=== PATIENT | female | born 2000 | race Two or more races ===

== ENCOUNTER 2024-05-19 15:35 | Emergency (ER) | payer MEDICAID, SELFPAY ==
[2024-05-19 15:37] VITALS: BMI 27.7
[2024-05-19 15:51] VITALS: BP 166/114; PULSE 86; RESP 16; TEMP 37.2; O2SAT 98
--- NOTE | 2024-05-19 15:59 | EKG_ITS ---
[facility] Test Date: 2024-05-19 Pat Name: CHELSEA LONDONO Department: Room: - Gender: Female Knockdown Man: : 2000 Requested By: José Miguel Amaya Order Number: [id number] Reading MD: José Miguel Amaya Measurements Intervals [place] Rate: 95 P: 63 RI: 175 QRS: 54 QRSD: 98 T: 11 QT: 356 QTc: 449 Interpretive Statements SINUS RHYTHM WITH SINUS ARRHYTHMIA No previous ECG available for comparison /store/S0/[id number]/[id number].pdf
--- NOTE | 2024-05-19 15:59 | PD.EDRME ---
Rapid Medical Screening Exam E Arrival date/time: 05/19/24 15:35 23-year-old female with no known medical history presents to the emergency room with a chief complaint of palpitations, elevated blood pressure readings, and chest discomfort x 2 days. I have greeted and performed a focused initial assessment of this patient. A comprehensive ED assessment and evaluation of the patient, analysis of all test results, and completion of the medical decision making process will be conducted by additional ED providers. Chief Complaint: General Adult/Misc Complain Vital signs: Vital Signs Temperature 98.9 F 05/19/24 15:51 Pulse Rate 86 05/19/24 15:51 Respiratory Rate 16 05/19/24 15:51 Blood Pressure 166/114 H 05/19/24 15:51 Pulse Oximetry (%) 98 05/19/24 15:51 Oxygen Delivery Method Room Air 05/19/24 15:51 Vital signs reviewed by provider: Yes
[2024-05-19 16:21] LABS: Collection Type, Urine Clean Catch
[2024-05-19 16:27] LABS: HCG Qualitative,Urine Negative
[2024-05-19 16:29] LABS: Bilirubin,Urine Negative (Negative); Blood,Urine Negative (Negative); Clarity,Urine Clear (Clear/Hazy); Color,Urine Lt-Yellow (Lt Yel-Yel); Glucose, Urine Negative (Negative); Ketones,Urine Negative (Negative); Leukocyte Esterase,Urine Negative (Negative); Nitrite,Urine Negative (Negative); Protein,Urine Trace (Neg - Trace); RBC,Urine 3 /hpf (0-3); Specific Gravity,Urine 1.021 (1.001-1.035); Squamous Epithelial Cell,Urine 4 /hpf (0-5); Urobilinogen,Urine Negative mg/dL (0.0-1.0); WBC,Urine 2 /hpf (0-5)
[2024-05-19 16:36] LABS: Amphetamine/Methamp Scrn,U Negative (Negative); Barbiturate Screen,Urine Negative (Negative); Benzodiazepines Screen,Urine Negative (Negative); Benzoylecgonine Screen, Ur Negative (Negative); Fentanyl Screen,Urine Negative (Negative); Opiate Screen,Urine Negative (Negative); THC Screen,Urine Negative (Negative)
[2024-05-19 16:38] LABS: Basophils # (Auto) 0.1 Thou/mm3 (0.0-0.2); Basophils % (Auto) 1 % (0-2.5); Eosinophils # (Auto) 0.1 Thou/mm3 (0.0-0.5); Eosinophils % (Auto) 1 % (0-10); Hematocrit 45.4 % (36.0-46.0); Hemoglobin 15.8 g/dL (12.0-16.0); Immature Granulocytes % (Auto) 0 % (0-0); Immature Granulocytes Auto 0.02 Thou/mm3 (0.00-0.00); Lymphocytes # (Auto) 1.7 Thou/mm3 (1.0-4.8); Lymphocytes % (Auto) 20 % (10-50); Mean Corpuscular HGB Conc 34.8 g/dl (31.0-37.0); Mean Corpuscular Hemoglobin 30.9 pg (25.0-35.0); Mean Corpuscular Volume 89 fL (80-100); Monocytes # (Auto) 0.6 Thou/mm3 (0.0-0.8); Monocytes % (Auto) 7 % (0-12); Neutrophils # (Auto) 5.9 Thou/mm3 (1.8-7.7); Neutrophils % (Auto) 71 % (37-80); Nucleated Red Blood Cell % 0 /100 WBC (0); Platelet Count 210 Thou/mm3 (140-440); RDW Standard Deviation 42.4 fL (36.4-46.3); Red Blood Count 5.11 Miln/mm3 (4.00-5.20); White Blood Count 8.3 Thou/mm3 (3.6-11.0)
[2024-05-19 17:00] LABS: B-Type Natriuretic Peptide < 20 pg/mL (0-100)
[2024-05-19 17:04] LABS: Alanine Aminotransferase 284 U/L (10-49); Albumin/Globulin Ratio 1.6 (1.2-2.2); Alkaline Phosphatase 117 U/L (46-116); Anion Gap 13 (7-16); Aspartate Amino Transferase 305 U/L (0-34); BUN/Creatinine Ratio 13 Ratio (12-20); Bilirubin,Total 0.7 mg/dL (0.3-1.2); Blood Urea Nitrogen 10 mg/dL (9-23); Calcium 9.6 mg/dL (8.3-10.6); Calcium (Corrected) 9.6 mg/dL (8.5-10.1); Chloride 101 mMol/L (98-107); Creatinine (Component) 0.8 mg/dL (0.6-1.3); Estimated Creatinine Clearance 114.3 mL/min (>60); Globulin 3.1 gm/dL (2.3-3.5); Glucose 101 mg/dL (74-106); Magnesium 1.7 mg/dL (1.6-2.6); Osmolality,Calculated 276 (275-295); Potassium 4.5 mMol/L (3.4-5.1); Sodium 139 mMol/L (136-145); Total Protein 8.1 gm/dL (5.7-8.2); Troponin I < 0.002 ng/mL (0.0-0.045); eGFR > 60 See Note
[2024-05-19 17:29] LABS: Partial Thromboplastin Time 26.8 Seconds (22.0-36.0); Prothrombin Time 10.8 Seconds (9.0-12.2)
--- NOTE | 2024-05-19 18:56 | PD.EDADULT ---
ED General RME/HPI General Chief complaint: General Adult/Misc Complain Stated complaint: HTN-162/113 AT HOME DENIES HTN Time Seen by Provider: 05/19/24 18:22 Arrival date/time: 05/19/24 15:35 RME / HPI RME / HPI narrative: 05/19/24 15:35 23-year-old female with no known medical history presents to the emergency room with a chief complaint of palpitations, elevated blood pressure readings, and chest discomfort x 2 days. I have greeted and performed a focused initial assessment of this patient. A comprehensive ED assessment and evaluation of the patient, analysis of all test results, and completion of the medical decision making process will be conducted by additional ED providers. Related Data Previous Rx's ?Medication ?Instructions ?Recorded hydrocodone 5 mg-acetaminophen 325 1 tab PO Q6H PRN pain #7 tabs 09/23/22 mg tablet ibuprofen 600 mg tablet 600 mg PO TID PRN pain #30 tabs 09/23/22 Allergies Allergy/AdvReac Type Severity Reaction Status Date / Time No Known Allergies Allergy Verified 05/19/24 15:37 Course Orders Category Date Time Status EKG (ED ONLY) *Do not use* NOW Care 05/19/24 15:59 Completed EKG (ED Only) Stat Exams 05/19/24 15:59 Draft B-Type Natriuretic Peptide Stat Lab 05/19/24 16:26 Completed CBC Stat Lab 05/19/24 16:26 Completed Comprehensive Metabolic Panel Stat Lab 05/19/24 16:26 Completed Drug Screen,Urine Stat Lab 05/19/24 16:14 Completed HCG Qualitative,Urine Stat Lab 05/19/24 16:14 Completed Magnesium Stat Lab 05/19/24 16:26 Completed Partial Thromboplastin Time Stat Lab 05/19/24 16:26 Completed Prothrombin Time with INR Stat Lab 05/19/24 16:26 Completed Troponin I Stat Lab 05/19/24 16:26 Completed Urinalysis Stat Lab 05/19/24 16:14 Completed cloNIDine HCL [Catapres] Med 05/19/24 15:59 Discontinued 0.1 mg PO X1 ONE Vital Signs Vital signs: Vital Signs Temperature 98.9 F 05/19/24 15:51 Pulse Rate 86 05/19/24 15:51 Respiratory Rate 16 05/19/24 15:51 Blood Pressure 166/114 H 05/19/24 15:51 Pulse Oximetry (%) 98 05/19/24 15:51 Oxygen Delivery Method Room Air 05/19/24 15:51 MDM Medications Medication administrations:: Medication Administration History Discontinued Medications Clonidine (Clonidine Hcl 0.1 Mg Tablet) 0.1 mg PO X1 ONE Stop: 05/19/24 16:00 Medical Decision Making Lab Data 05/19/24 16:26 05/19/24 16:26 Labs: Lab Results 05/19/24 05/19/24 Range/Units 16:14 16:26 WBC 8.3 (3.6-11.0) Thou/mm3 RBC 5.11 (4.00-5.20) Miln/mm3 Hgb 15.8 (12.0-16.0) g/dL Hct 45.4 (36.0-46.0) % MCV 89 (80-100) fL MCH 30.9 (25.0-35.0) pg MCHC 34.8 (31.0-37.0) g/dl RDW Std Deviation 42.4 (36.4-46.3) fL Plt Count 210 (140-440) Thou/mm3 Neut % (Auto) 71 (37-80) % Lymph % (Auto) 20 (10-50) % [place] % (Auto) 7 (0-12) % Eos % (Auto) 1 (0-10) % Baso % (Auto) 1 (0-2.5) % Neut # (Auto) 5.9 (1.8-7.7) Thou/mm3 Lymph # (Auto) 1.7 (1.0-4.8) Thou/mm3 [place] # (Auto) 0.6 (0.0-0.8) Thou/mm3 Eos # (Auto) 0.1 (0.0-0.5) Thou/mm3 Baso # (Auto) 0.1 (0.0-0.2) Thou/mm3 Immature Gran # (Auto) 0.02 H (0.00-0.00) Thou/mm3 Absolute Nucleated RBC 0.00 (0.00-0.00) Thou/mm3 Immature Gran % 0 (0-0) % Nucleated RBC % 0 (0) /100 WBC PT 10.8 (9.0-12.2) Seconds INR 1.0 (0.9-1.3) APTT 26.8 (22.0-36.0) Seconds Sodium 139 (136-145) mMol/L Potassium 4.5 (3.4-5.1) mMol/L Chloride 101 (98-107) mMol/L Carbon Dioxide 25.0 (20.0-31.0) mMol/L Anion Gap 13 (7-16) BUN 10 (9-23) mg/dL Creatinine 0.8 (0.6-1.3) mg/dL Estim Creat Clear Calc 114.3 (>60) mL/min eGFR > 60 (60 - ) See Note BUN/Creatinine Ratio 13 (12-20) Ratio Glucose 101 (74-106) mg/dL Calculated Osmolality 276 (275-295) Calcium 9.6 (8.3-10.6) mg/dL Corrected Calcium 9.6 (8.5-10.1) mg/dL Magnesium 1.7 (1.6-2.6) mg/dL Total Bilirubin 0.7 (0.3-1.2) mg/dL AST 305 H (0-34) U/L ALT 284 H (10-49) U/L Alkaline Phosphatase 117 H (46-116) U/L Troponin I < 0.002 (0.0-0.045) ng/mL B-Natriuretic Peptide < 20 (0-100) pg/mL Total Protein 8.1 (5.7-8.2) gm/dL Albumin 5.0 (3.5-5.0) gm/dL Globulin 3.1 (2.3-3.5) gm/dL Albumin/Globulin Ratio 1.6 (1.2-2.2) Ur Collection Type Clean Catch Urine Color Lt-Yellow (Lt Yel-Yel) Urine Clarity Clear (Clear/Hazy) Urine pH 7.0 (5.0-7.0) Ur Specific [place] 1.021 (1.001-1.035) Urine Protein Trace (Neg - Trace) Urine Glucose (UA) Negative (Negative) Urine Ketones Negative (Negative) Urine Blood Negative (Negative) Urine Nitrite Negative (Negative) Urine Bilirubin Negative (Negative) Urine Urobilinogen (Auto) Negative (0.0-1.0) mg/dL Ur Leukocyte Esterase Negative (Negative) Urine RBC 3 (0-3) /hpf Urine WBC 2 (0-5) /hpf Ur Squamous Epith Cells 4 (0-5) /hpf Urine Bacteria None (None) Urine HCG, Qual Negative Urine Opiates Screen Negative (Negative) Urine Fentanyl Screen Negative (Negative) Ur Barbiturates Screen Negative (Negative) U Amphetamin/Meth Scrn Negative (Negative) U Benzodiazepines Scrn Negative (Negative) U Cocaine Metab Screen Negative (Negative) U Marijuana (THC) Screen Negative (Negative) Discharge Plan Prescriptions/Referrals Prescriptions/Med Rec: No Action hydrocodone-acetaminophen 5-325 mg tablet 1 tab PO Q6H MDD 3 PRN (Reason: pain) Qty: 7 0RF ibuprofen 600 mg tablet 600 mg PO TID PRN (Reason: pain) Qty: 30 0RF Referrals: No Primary/Family,Physician [Primary Care Provider] - In 1 week Patient/Caregiver Discharge Instructions Print Language: Korean
[2024-05-19 19:35] VITALS: BP 180/107; PULSE 78
[2024-05-19] MEDS: METOPROLOL TARTRATE 25 MG TABLET 50 MG PO (19:35)
[2024-05-19] MEDS: cloNIDine HCL 0.1 MG TABLET 0.2 MG PO (19:35)
--- NOTE | 2024-05-19 21:47 | PD.EDADDENDU ---
Emergency Room Addendum Addendum Narrative: Patient was seen by KENRICK and oral BP meds given. When I looked for the patient, I was told the patient eloped. Lucian Be MD
--- NOTE | 2024-05-19 21:48 | PC.NURSE ---
PATIENT WAS CALLED BY STAFF IN THE LOBBY AND OUTSIDE, NO ANSWER RECIEVED.
--- NOTE | 2024-05-19 22:05 | PC.NURSE ---
CALLED PATIENT IN LOBBY AND OUTSIDE, NO ANSWER RECEIVED.
--- NOTE | 2024-05-19 22:20 | PC.NURSE ---
CALLED PATIENT IN LOBBY AND OUTSIDE NO ANSWER RECEIVED.
== END 2024-05-19 22:20 | disposition left against medical advice (07) ==
PROVIDERS: Nurse Practitioner Family; Emergency Provider Emergency Medicine
DX: R00.2 Palpitations (principal); R03.0 Elevated blood-pressure reading, without diagnosis of hypertension; R07.89 Other chest pain; Z53.29 Procedure and treatment not carried out because of patient's decision for other reasons
CPT/HCPCS: 36415; 80053; 80307; 81001; 81025; 83735; 83880; 84484; 85025; 85610; 85730; 93005; 99281; A9270